=== PATIENT | male | born 1950 | race Caucasian/White ===

== ENCOUNTER 2021-02-05 10:49 | Day surgery (SDC) | payer MEDICARE ==
[~2021-02-05] VITALS: Ht 175.3 cm; Wt 81.6 kg
[2021-02-05 11:21] VITALS: BP 110/65
[2021-02-05] MEDS ORDERED: ASPI81TA45 PO (11:28)
[2021-02-05] MEDS ORDERED: CHOL100011 PO (11:28)
[2021-02-05] MEDS ORDERED: MULT-658 PO (11:28)
[2021-02-05] MEDS ORDERED: WARF2TAB99 PO (11:28)
[2021-02-05] MEDS ORDERED: DIGO125T85 PO (11:28)
[2021-02-05] MEDS ORDERED: ATOR-2 PO (11:28)
[2021-02-05] MEDS ORDERED: AMIO200T42 PO (11:28)
[2021-02-05] MEDS ORDERED: OMEG1CAP39 PO (11:28)
[2021-02-05] MEDS ORDERED: METO-93 PO (11:29)
[2021-02-05] MEDS ORDERED: PLEASE ENTER HEIGHT AND WEIGHT MC SCH (11:30)
[2021-02-05 12:07] LABS: BASOPHILS % (AUTO) 0 % (0-1); EOSINOPHILS % (AUTO) 6 % (1-7); LYMPHOCYTES % (AUTO) 17 % (22-44); MEAN CORPUSCULAR HEMOGLOBIN 31.9 pg (27.5-34.5); MEAN CORPUSCULAR HGB CONC 34.1 g/dL (33.2-36.2); MEAN PLATELET VOLUME 8.9 fL (7.4-10.4); MONOCYTES % (AUTO) 9 % (2-9); NEUTROPHILS % (AUTO) 67 % (42-75); PLATELET COUNT 278 x10^3/uL (130-400); RED BLOOD COUNT 5.01 x10^6/uL (4.38-5.82); RED CELL DISTRIBUTION WIDTH 13.5 % (9.4-14.8)
[2021-02-05 12:11] LABS: MD NO
[2021-02-05 12:17] LABS: INTERNATIONAL NORMALIZED RATIO 1.38 (0.93-1.1); PROTHROMBIN TIME 14.7 Seconds (9.6-11.5)
[2021-02-05 12:18] LABS: ANION GAP 4 mmol/L (5-15); CALCIUM 9.5 mg/dL (8.5-10.1); CHLORIDE 110 mmol/L (98-107); CREATININE 0.92 mg/dL (0.7-1.3)
[2021-02-05] MEDS ORDERED: LIDOCAINE 2%, 20ML ONE (12:25)
[2021-02-05] MEDS ORDERED: MIDAZOLAM 1 MG/ML, 5ML ONE (12:25)
[2021-02-05] MEDS ORDERED: CEFAZOLIN PMX 1GM/50ML 50 ML ONE (12:25)
[2021-02-05] MEDS ORDERED: FENTANYL PF 100 MCG/2ML ONE (12:25)
[2021-02-05] MEDS ORDERED: SODIUM CHLORIDE 0.9% 1,000 ML IV SCH (14:00)
== END 2021-02-05 15:23 | disposition home or self-care (01) ==
LOC: CACL 10:49
PROVIDERS: ATTEND Internal Medicine Clinical Cardiac Electrophysiology
DX: Z45.02 Encounter for adjustment and management of automatic implantable cardiac defibrillator (principal); J44.9 Chronic obstructive pulmonary disease, unspecified; Z79.01 Long term (current) use of anticoagulants; Z79.82 Long term (current) use of aspirin; Z79.899 Other long term (current) drug therapy; Z87.891 Personal history of nicotine dependence
CPT/HCPCS: 33262; 36415; 71046; 80048; 85025; 85610; 93005; 99156; 99157; C1722; J0690; J2250; J3010

== ENCOUNTER 2021-05-15 15:11 | Emergency (ER) | payer MEDICARE ==
[~2021-05-15] VITALS: Ht 175.3 cm; Wt 80.4 kg
[~2021-05-15 15:11] MED LIST: AMIO200T42 PO; ASPI81TA45 PO; ATOR-2 PO; CHOL100011 PO; DIGO125T85 PO; METO-93 PO; MULT-658 PO; OMEG1CAP39 PO; WARF2TAB99 PO
--- NOTE | 2021-05-15 15:33 | NUR ---
PT BIB EMS FOR AICD FIRING X 1. PT DENIES CP, SOB, LIGHTHEADEDNESS OR DOHERTY PRIOR TO AICD FIRING OR CURRENTLY. PT AICD WAS REPLACED [address] YIN. PT WAS DOING YARD WORK AND HASN'T BEEN DRINKING WATER TODAY. PT PIV STARTED BY EMS DIGITIZER 20 GA LAC. EMS ALSO ADMINISTERED 800 ML NS.
[2021-05-15 16:24] LABS: BASOPHILS % (AUTO) 0 % (0-1); EOSINOPHILS % (AUTO) 2 % (1-7); LYMPHOCYTES % (AUTO) 14 % (22-44); MEAN CORPUSCULAR HEMOGLOBIN 30.8 pg (27.5-34.5); MEAN CORPUSCULAR HGB CONC 33.5 g/dL (33.2-36.2); MEAN PLATELET VOLUME 8.9 fL (7.4-10.4); MONOCYTES % (AUTO) 7 % (2-9); NEUTROPHILS % (AUTO) 77 % (42-75); PLATELET COUNT 283 x10^3/uL (130-400); RED BLOOD COUNT 4.74 x10^6/uL (4.38-5.82); RED CELL DISTRIBUTION WIDTH 13.6 % (9.4-14.8)
[2021-05-15 16:32] LABS: INTERNATIONAL NORMALIZED RATIO 2.18 (0.93-1.1)
[2021-05-15 16:33] LABS: ALBUMIN 3.1 g/dL (3.4-5.0); CALCIUM 9.4 mg/dL (8.5-10.1); CHLORIDE 115 mmol/L (98-107)
[2021-05-15 16:43] LABS: ANION GAP 7 mmol/L (5-15)
[2021-05-15 16:52] LABS: ALANINE AMINOTRANSFERASE 33 U/L (12-78); ALKALINE PHOSPHATASE 104 U/L (45-117); BILIRUBIN,TOTAL 0.4 mg/dL (0.2-1.0); CREATININE 0.77 mg/dL (0.7-1.3); TOTAL PROTEIN 6.8 g/dL (6.4-8.2)
[2021-05-15 18:23] VITALS: BP 128/76
--- NOTE | 2021-05-15 18:40 | NUR ---
PT REC'VD DISCHARGE INSTRUCTIONS AND EDUCATION. PT HAD NO FURHER QUESTIONS. PT, WITH SPOUSE BESIDE, AMBULATED TO DC AREA, STEADY GAIT.
== END 2021-05-15 18:44 | disposition home or self-care (01) ==
LOC: ED 18:14
DX: I48.20 Chronic atrial fibrillation, unspecified (principal); D68.8 Other specified coagulation defects; I10 Essential (primary) hypertension; Z87.891 Personal history of nicotine dependence
CPT/HCPCS: 36415; 71045; 80053; 80162; 83735; 85025; 85610; 93005; 99285

== ENCOUNTER 2021-08-05 14:10 | Inpatient (IN) | payer MEDICARE ==
[~2021-08-05] VITALS: Ht 175.3 cm; Wt 74.0 kg
--- NOTE | 2021-08-05 14:30 | NUR ---
PT PLACED IN HOSPITAL GOWN. EKG DONE. PT ON CARDIAC AND VITALS MONITORS. AT BEDSIDE. WILL CONTINUE TO MONITOR.
[2021-08-05] MEDS ORDERED: SODIUM CHLORIDE FLUSH 10ML SYR IVF ONE (15:30)
--- NOTE | 2021-08-05 15:35 | NUR ---
CALLED [facility] TO HAVE PACER INTEROGATED. STATED THEY WILL PUT PT ON SCHEDULE
--- NOTE | 2021-08-05 16:01 | NUR ---
INTEROGATED PT PACER WITH ER UNIT.
[2021-08-05 16:26] LABS: ALBUMIN 3.1 g/dL (3.4-5.0); CALCIUM 9.6 mg/dL (8.5-10.1)
[2021-08-05 16:30] LABS: TROPONIN I < 0.015 ng/mL (0.000-0.045)
[2021-08-05 16:35] LABS: ANION GAP 6 mmol/L (5-15); CHLORIDE 111 mmol/L (98-107)
[2021-08-05 16:41] LABS: BASOPHILS % (AUTO) 0 % (0-1); EOSINOPHILS % (AUTO) 0 % (1-7); LYMPHOCYTES % (AUTO) 9 % (22-44); MEAN CORPUSCULAR HEMOGLOBIN 30.5 pg (27.5-34.5); MEAN CORPUSCULAR HGB CONC 33.6 g/dL (33.2-36.2); MEAN PLATELET VOLUME 9.3 fL (7.4-10.4); MONOCYTES % (AUTO) 5 % (2-9); NEUTROPHILS % (AUTO) 86 % (42-75); PLATELET COUNT 249 x10^3/uL (130-400); RED CELL DISTRIBUTION WIDTH 14.4 % (9.4-14.8)
[2021-08-05 17:15] LABS: INTERNATIONAL NORMALIZED RATIO 2.32 (0.93-1.1); PROTHROMBIN TIME 23.8 Seconds (9.6-11.5)
[2021-08-05] MEDS ORDERED: AMIODARONE 150 MG in DEXTROSE 5% 97 ML IV ONE (17:30)
[2021-08-05] MEDS ORDERED: FILTER 0.22 MICRON FOR AMIODARONE IV PRN (17:30)
[2021-08-05] MEDS ORDERED: AMIODARONE 450 MG in DEXTROSE 5% 241 ML IV PRN ×2 (17:30→18:30)
[2021-08-05] MEDS ORDERED: ONDANSETRON ODT 4 MG PO PRN (18:30)
[2021-08-05] MEDS ORDERED: POLYETHYLENE GLYCOL 17 GM PACKET PO PRN (18:30)
[2021-08-05] MEDS ORDERED: BISACODYL 10 MG SUPP PR PRN (18:30)
[2021-08-05] MEDS ORDERED: ACETAMINOPHEN 325 MG TABLET PO PRN (18:30)
--- NOTE | 2021-08-05 18:38 | NUR ---
REPORT TO IRENE HECK
[2021-08-05 19:08] LABS: FREE T4 (FREE THYROXINE) 1.46 ng/dL (0.76-1.46)
[2021-08-05 19:42] VITALS: BP 125/70
[2021-08-05] MEDS: SODIUM CHLORIDE FLUSH 10ML SYR IVF SCH (22:14)
[2021-08-05] MEDS: ATORVASTATIN 80 MG TABLET PO SCH (22:14)
[2021-08-06 01:02] VITALS: BP 130/80
[2021-08-06 06:35] LABS: BASOPHILS % (AUTO) 0 % (0-1); EOSINOPHILS % (AUTO) 3 % (1-7); LYMPHOCYTES % (AUTO) 14 % (22-44); MEAN CORPUSCULAR HEMOGLOBIN 30.6 pg (27.5-34.5); MEAN CORPUSCULAR HGB CONC 33.9 g/dL (33.2-36.2); MEAN PLATELET VOLUME 9.1 fL (7.4-10.4); MONOCYTES % (AUTO) 8 % (2-9); NEUTROPHILS % (AUTO) 74 % (42-75); PLATELET COUNT 236 x10^3/uL (130-400); RED BLOOD COUNT 4.78 x10^6/uL (4.38-5.82); RED CELL DISTRIBUTION WIDTH 14.7 % (9.4-14.8)
[2021-08-06 06:37] LABS: CHLORIDE 110 mmol/L (98-107)
[2021-08-06 06:55] LABS: ANION GAP 3 mmol/L (5-15); CALCIUM 9.5 mg/dL (8.5-10.1); CREATININE 0.64 mg/dL (0.7-1.3)
[2021-08-06 08:05] VITALS: BP 128/74
[2021-08-06] MEDS: OMEGA-3/FISH OIL CAPSULE PO SCH (08:09)
[2021-08-06] MEDS: CHOLECALCIFEROL 1,000 UNIT TABLET PO SCH (08:09)
[2021-08-06] MEDS: MULTIVITAMIN 1 TABLET PO SCH (08:09)
[2021-08-06] MEDS: SENNA/DOCUSATE TABLET PO SCH (08:09)
[2021-08-06] MEDS: ASPIRIN 81 MG TABLET EC PO SCH (08:09)
[2021-08-06] MEDS: SODIUM CHLORIDE FLUSH 10ML SYR IVF SCH ×2 (08:10→20:21)
[2021-08-06] MEDS: METOPROLOL SUCCINATE 50 MG TAB.ER.24H PO SCH (08:10)
[2021-08-06] MEDS ORDERED: WARFARIN 2 MG TABLET PO-COUM SCH ×2 (09:00→18:00)
[2021-08-06 14:44] VITALS: BP 110/66
[2021-08-06] MEDS: AMIODARONE 200 MG TABLET PO SCH ×2 (14:45→20:21)
[2021-08-06] MEDS: ATORVASTATIN 80 MG TABLET PO SCH (20:21)
[2021-08-06 20:29] VITALS: BP 131/76
[2021-08-06] MEDS ORDERED: AMIODARONE 200 MG TABLET PO SCH (21:00)
[2021-08-07 02:40] VITALS: BP 116/68
[2021-08-07 06:58] VITALS: BP 121/59
[2021-08-07] MEDS: MULTIVITAMIN 1 TABLET PO SCH (08:23)
[2021-08-07] MEDS: OMEGA-3/FISH OIL CAPSULE PO SCH (08:23)
[2021-08-07] MEDS: METOPROLOL SUCCINATE 50 MG TAB.ER.24H PO SCH (08:24)
[2021-08-07] MEDS: CHOLECALCIFEROL 1,000 UNIT TABLET PO SCH (08:24)
[2021-08-07] MEDS: AMIODARONE 200 MG TABLET PO SCH (08:24)
[2021-08-07] MEDS: ASPIRIN 81 MG TABLET EC PO SCH (08:24)
[2021-08-07] MEDS: SENNA/DOCUSATE TABLET PO SCH (08:24)
[2021-08-07] MEDS: SODIUM CHLORIDE FLUSH 10ML SYR IVF SCH (08:25)
[2021-08-07] MEDS ORDERED: AMIO200T42 PO (11:52)
== END 2021-08-07 12:33 | disposition home or self-care (01) | DRG 309 ==
LOC: ED 14:12 → EDIP 17:22 → 5SO 18:56
PROVIDERS: ADMIT Hospitalist; ATTEND Family Medicine
PROC: 4B02XTZ Measurement of Cardiac Defibrillator, External Approach (ICD-10-PCS; principal; 2021-08-05)
DX: I47.2 Ventricular tachycardia (principal); D68.69 Other thrombophilia; R57.9 Shock, unspecified; I48.20 Chronic atrial fibrillation, unspecified; I48.92 Unspecified atrial flutter; I48.91 Unspecified atrial fibrillation; E78.5 Hyperlipidemia, unspecified; I10 Essential (primary) hypertension; J44.9 Chronic obstructive pulmonary disease, unspecified; I25.10 Atherosclerotic heart disease of native coronary artery without angina pectoris; F17.210 Nicotine dependence, cigarettes, uncomplicated; Z95.810 Presence of automatic (implantable) cardiac defibrillator; I25.2 Old myocardial infarction; Z87.442 Personal history of urinary calculi; Z95.1 Presence of aortocoronary bypass graft; Z82.49 Family history of ischemic heart disease and other diseases of the circulatory system; Z79.01 Long term (current) use of anticoagulants; Z86.79 Personal history of other diseases of the circulatory system
CPT/HCPCS: 36415; 71045; 80048; 80162; 82040; 83735; 84439; 84443; 84481; 84484; 85025; 85610; 93005; 93306; 96365; 99291; G0378; J7060; J0282